=== PATIENT | female | born 1995 | race Caucasian/White ===

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

== ENCOUNTER 2017-07-11 21:33 | Emergency (ER) | payer MEDICAID ==
[2017-07-11] MEDS ORDERED: NORMAL SALINE 1000 ML 1,000 ML IV ONE (22:43)
--- NOTE | 2017-07-11 23:06 | ER Document Report ---
ED Cardiac - General Chief Complaint: Palpitations Stated Complaint: fast heart rate Time Seen by Provider: 07/11/17 22:45 Mode of Arrival: Ambulatory Information source: Patient, Parent TRAVEL OUTSIDE OF THE [place] IN LAST 30 DAYS: No - HPI Patient complains to provider of: Palpitations Notes: 22-year-old female with history of hypertension presents with 2 possibly 3 days of rapid palpitations that she has noted. It has been constant, regular. She has had some intermittent mild left chest discomfort and intermittent left arm tingling associated with this. She did have an episode of nausea without vomiting. She had a mild stuffy nose but no febrile illness recently. Currently no chest pain. Denies any new medications, this includes over-the- counter medications. No syncope. No calf pain or leg swelling. Denies prior cardiac or lung problems other than the hypertension. - Related Data Allergies/Adverse Reactions: No Known Allergies Allergy (Verified 10/12/16 18:42) Past Medical History - Social History Smoking Status: Never Smoker Drug Abuse: None Family History: Reviewed & Not Pertinent Patient has suicidal ideation: No Patient has homicidal ideation: No Renal/ Medical History: Denies: Hx Peritoneal Dialysis - Immunizations Immunizations up to date: Yes Hx Diphtheria, Pertussis, Tetanus Vaccination: Yes Review of Systems - Review of Systems -: Yes ROS unobtainable due to patient's medical condition Physical Exam - Vital signs Vitals: Temp Pulse Resp BP Pulse Ox 98.9 F 140 H 16 144/86 H 100 07/11/17 21:36 07/11/17 21:36 07/11/17 21:36 07/11/17 21:36 07/11/17 21:36 - Notes Notes: Physical Exam: GENERAL: VS as per nursing doc. Well-appearing, well-nourished and in no acute distress. HEAD: Atraumatic, normocephalic. EYES: Pupils equal round and reactive to light, extraocular movements intact, sclera anicteric, no conjunctival injection or discharge. ENT: Nares patent, oropharynx clear without exudates. Moist mucous membranes. NECK: Normal range of motion, supple without lymphadenopathy. No JVD. No Carotid Bruits. No thyromegaly noted LUNGS: Breath sounds clear to auscultation bilaterally and equal. No wheezes rales or rhonchi. HEART: Normal S1S2. Regular rhythm though the patient is tachycardic, without murmurs. Equal peripheral pulses. Heart rate during exam is 116. ABDOMEN: Soft, non-tender EXTREMITIES: Normal range of motion. No calf tenderness. Negative Homans. No edema. NEUROLOGICAL: Cranial nerves grossly intact. Normal speech. Normal sensory and motor exams. No gross cerebellar abnormalities. PSYCH: Normal mood, normal affect. Slightly anxious noted. SKIN: Warm, dry, no cyanosis, no splinter hemorrhages. Cap refill < 2 sec. Course - Re-evaluation Re-evalutation: 07/12/17 00:18 Patient improving. Heart rate 115, down from 140 initial evaluation. Troponin and thyroid studies pending. Discussed findings up to this point. They are concerned that she has had a lot of stress with the recent of her mother' s [id number]. 07/12/17 01:59 Reviewed all findings with the patient. Discussed slightly elevated WBC and warning signs to watch for. On reexam no discomfort. Heart rate 104. Mandatory follow-up and warning signs discussed with the patient and she verbally voices understanding. - Vital Signs Vital signs: Temp Pulse Resp BP Pulse Ox 98.9 F 140 H 20 137/71 H 98 07/11/17 21:36 07/11/17 21:36 07/12/17 01:07 07/12/17 01:07 07/12/17 01:07 - Laboratory Result Diagrams: 07/11/17 23:15 07/11/17 23:15 Laboratory results interpreted by me: 07/11/17 07/11/17 23:15 23:15 WBC 14.1 H Absolute Neutrophils 9.2 H Direct Bilirubin 0.5 H Total Protein 8.7 H - Diagnostic Test Radiology reviewed: Image reviewed, Reports reviewed - No acute process - EKG Interpretation by Me Rate: Tachycardia Additional EKG results interpreted by me: 07/11/17 23:05 Sinus tachycardia, rate 134. Mild nonspecific ST-T abnormalities probably more rate related. No clear ischemia. QRS of normal duration. Discharge - Discharge Clinical Impression: Tachycardia, Chest pain Condition: Good Disposition: HOME, SELF-CARE Instructions: Palpitations (Irregular or Rapid Heartrate) ([facility]) Additional Instructions: Please return for worsening or other concern. Please contact your physician for a follow-up this week. Referrals: MARIANO CONNORS, [employer] INSTRUCTOR-C [Primary Care Provider] - Follow up in 3-5 days
--- NOTE | 2017-07-11 23:19 | RADIOLOGY REPORT (SQ) ---
EXAM DESCRIPTION: CHEST SINGLE VIEW COMPLETED DATE/TIME: 07/11/2017 10:56 pm REASON FOR STUDY: palpitations COMPARISON: None. EXAM PARAMETERS: NUMBER OF VIEWS: One view. TECHNIQUE: Single frontal radiographic view of the chest acquired. RADIATION DOSE: NA LIMITATIONS: None. FINDINGS: LUNGS AND PLEURA: No opacities, masses or pneumothorax. No pleural effusion. MEDIASTINUM AND HILAR STRUCTURES: No masses. Contour normal. HEART AND VASCULAR STRUCTURES: Heart normal in size. Normal vasculature. BONES: No acute findings. HARDWARE: None in the chest. OTHER: No other significant finding. IMPRESSION: NO ACUTE RADIOGRAPHIC FINDING IN THE CHEST. TECHNICAL DOCUMENTATION: JOB ID: [id number] [employer]- All Rights Reserved
[2017-07-11 23:43] LABS: ABSOLUTE BASOPHILS # (AUTO) 0.1 10^3/uL (0.0-0.2); ABSOLUTE EOSINOPHILS # (AUTO) 0.1 10^3/uL (0.0-0.6); ABSOLUTE LYMPHOCYTES (AUTO) 3.6 10^3/uL (0.5-4.7); ABSOLUTE MONOCYTES (AUTO) 1.1 10^3/uL (0.1-1.4); ABSOLUTE NEUT (AUTO) 9.2 10^3/uL (1.7-8.2); BASOPHILS % (AUTO) 0.5 % (0-2); EOSINOPHILS % (AUTO) 0.7 % (0-6); HEMATOCRIT 42.5 % (36.0-47.0); HEMOGLOBIN 14.6 g/dL (12.0-15.5); HGB HCT DIFFERENCE 1.3; LYMPHOCYTES % (AUTO) 25.2 % (13-45); MEAN CORPUSCULAR HEMOGLOBIN 28.2 pg (27.0-33.4); MEAN CORPUSCULAR HGB CONC 34.4 g/dL (32.0-36.0); MEAN CORPUSCULAR VOLUME 82 fl (80-97); MONOCYTES % (AUTO) 8.1 % (3-13); RED BLOOD COUNT 5.18 10^6/uL (3.72-5.28); RED CELL DISTRIBUTION WIDTH 13.7 % (11.5-14.0); SEGMENTED NEUTROPHILS % (AUTO) 65.5 % (42-78); WHITE BLOOD COUNT 14.1 10^3/uL (4.0-10.5)
[2017-07-11 23:46] LABS: APPEARANCE,URINE SLIGHTLY-CLOUDY; BILIRUBIN,URINE NEGATIVE (NEGATIVE); GLUCOSE, URINE NEGATIVE (NEGATIVE); KETONES,URINE NEGATIVE (NEGATIVE); LEUKOCYTE ESTERASE,URINE NEGATIVE (NEGATIVE); NITRITE,URINE NEGATIVE (NEGATIVE); PROTEIN,URINE NEGATIVE (NEGATIVE); URINE SPECIFIC GRAVITY 1.012; UROBILINOGEN,URINE NEGATIVE mg/dL (<2.0)
[2017-07-12 00:02] LABS: ALANINE AMINOTRANSFERASE 32 U/L (9-52); ALBUMIN 4.8 g/dL (3.5-5.0); ALKALINE PHOSPHATASE 107 U/L (38-126); ANION GAP 14 (5-19); ASPARTATE AMINO TRANSFERASE 21 U/L (14-36); BILIRUBIN,DIRECT 0.5 mg/dL (0.0-0.4); BILIRUBIN,TOTAL 0.5 mg/dL (0.2-1.3); BLOOD UREA NITROGEN 9 mg/dL (7-20); CARBON DIOXIDE 29 mmol/L (22-30); CHLORIDE 101 mmol/L (98-107); CREATINE KINASE 51 U/L (30-135); GLUCOSE 102 mg/dL (75-110); POTASSIUM 3.8 mmol/L (3.6-5.0); TOTAL PROTEIN 8.7 g/dL (6.3-8.2)
[2017-07-12 00:20] LABS: FREE T3 4.57 pg/mL (2.77-5.27)
[2017-07-12 00:33] LABS: THYROID STIMULATING HORMONE 2.48 uIU/mL (0.47-4.68)
[2017-07-12 00:47] LABS: URINE BARBITURATES SCREEN NEGATIVE; URINE METHADONE SCREEN NEGATIVE; URINE OPIATES LOW NEGATIVE; URINE PHENCYCLIDINE SCREEN NEGATIVE
[2017-07-12 02:05] VITALS: BP 117/55
--- NOTE | 2017-07-12 09:41 | EKG REPORT ---
SEVERITY:- OTHERWISE NORMAL ECG - SINUS TACHYCARDIA : Confirmed by: Yanci Vega 12-Jul-2017 09:41:00
== END 2017-07-12 02:08 | disposition home or self-care (01) ==
LOC: ER 21:33
DX: R00.0 Tachycardia, unspecified (principal); R07.9 Chest pain, unspecified; R00.2 Palpitations; I10 Essential (primary) hypertension
CPT/HCPCS: 93005; 99285; 96360; 36415; 84439; 82550; 84443; 84703; 85025; 80053; 81001; 84484; 80307; 84481; 85379; 71010; 93010; J7030

== ENCOUNTER 2017-09-05 01:07 | Emergency (ER) | payer MEDICAID ==
--- NOTE | 2017-09-05 02:28 | RADIOLOGY REPORT (SQ) ---
EXAM DESCRIPTION: CHEST SINGLE VIEW CLINICAL HISTORY: 22 years, Female, chest pain COMPARISON: None. FINDINGS: Normal lung volume, clear parenchyma, normal cardiac silhouette, and intact bony thorax. IMPRESSION: No acute cardiopulmonary findings. 2011 [employer]- All Rights Reserved
--- NOTE | 2017-09-05 02:30 | ER Document Report ---
ED General - General Chief Complaint: Chest Pain Stated Complaint: CHEST DISCOMFORT Time Seen by Provider: 09/05/17 01:37 Notes: Patient is a 22-year-old female with past medical history of morbid obesity and hypertension who presents with concerns of intermittent left-sided chest pain for the past 1 week. Describes it as an intermittent, stabbing pain that she notices mostly at night. Patient states when she is lying in bed she occasionally feels the pain she cannot stop thinking about it which is what eventually prompted her to come to the emergency department tonight. She denies any pain at time of assessment. She states that these pains come for several seconds and then spontaneously resolved. She denies any associated shortness of breath, nausea, vomiting, diaphoresis, or pleuritic pain. No history of DVT or pulmonary embolus. She does not use any form of control and does not use any form of supplemental estrogen. She has not seen her primary doctor regarding today's concerns. TRAVEL OUTSIDE OF THE [place] IN LAST 30 DAYS: No - Related Data Allergies/Adverse Reactions: No Known Allergies Allergy (Verified 10/12/16 18:42) Past Medical History - General Information source: Patient - Social History Smoking Status: Never Smoker Frequency of alcohol use: None Drug Abuse: None Lives with: Family Family History: Reviewed & Not Pertinent Patient has suicidal ideation: No Patient has homicidal ideation: No Renal/ Medical History: Denies: Hx Peritoneal Dialysis - Immunizations Immunizations up to date: Yes Hx Diphtheria, Pertussis, Tetanus Vaccination: Yes Review of Systems - Review of Systems Notes: Constitutional: Negative for fever. HENT: Negative for sore throat. Eyes: Negative for visual changes. Cardiovascular: Positive for chest pain. Respiratory: Negative for shortness of breath. Gastrointestinal: Negative for abdominal pain, vomiting or diarrhea. Genitourinary: Negative for dysuria. Musculoskeletal: Negative for back pain. Skin: Negative for rash. Neurological: Negative for headaches, weakness or numbness. 10 point ROS negative except as marked above and in HPI. Physical Exam - Vital signs Vitals: Temp Pulse Resp BP Pulse Ox 98.6 F 90 21 H 119/70 97 09/05/17 01:25 09/05/17 01:25 09/05/17 01:25 09/05/17 01:25 09/05/17 01:25 Interpretation: Normal Notes: PHYSICAL EXAMINATION: GENERAL: Well-appearing, well-nourished and in no acute distress. HEAD: Atraumatic, normocephalic. EYES: Pupils equal round and reactive to light, extraocular movements intact, sclera anicteric, conjunctiva are normal. ENT: nares patent, oropharynx clear without exudates. Moist mucous membranes. NECK: Normal range of motion, supple without lymphadenopathy LUNGS: Breath sounds clear to auscultation bilaterally and equal. No wheezes rales or rhonchi. HEART: Regular rate and rhythm without murmurs Chest wall: Reproduce pain with palpation of the left central chest just lateral to the sternum ABDOMEN: Soft, nontender, normoactive bowel sounds. No guarding, no rebound. No masses appreciated. EXTREMITIES: Normal range of motion, no pitting or edema. No cyanosis. NEUROLOGICAL: No focal neurological deficits. Moves all extremities spontaneously and on command. PSYCH: Normal mood, normal affect. SKIN: Warm, Dry, normal turgor, no rashes or lesions noted. Course - Re-evaluation Re-evalutation: 09/05/17 02:28 Presentation of chest pain in an otherwise well appearing patient. Low clinical suspicion for ACS given clinical history, exam, EKG without ST elevations or depressions. Given the extremely low concern for ACS I do not believe troponin testing is indicated. PE also seems unlikely given clinical history, absence of tachycardia or dyspnea. Patient is PERC criteria negative. CXR without evidence of pneumothorax or pneumonia. No widened mediastinum. Aortic dissection also seems unlikely given history, symmetric pulses, CXR, and vitals. Clinical history appears to be most consistent with musculoskeletal irritation likely secondary to patient having large breasts and not wearing a bra on a regular basis. Her pain is reproduced with palpation at the bedside. At this time will discharge with return precautions and follow-up recommendations. Verbal discharge instructions given a the bedside and opportunity for questions given. Medication warnings reviewed. Patient is in agreement with this plan and has verbalized understanding of return precautions and the need for primary care follow-up in the next 24-72 hours. - Vital Signs Vital signs: Temp Pulse Resp BP Pulse Ox 98.6 F 90 21 H 119/70 97 09/05/17 01:25 09/05/17 01:25 09/05/17 01:25 09/05/17 01:25 09/05/17 01:25 - Diagnostic Test Radiology reviewed: Image reviewed, Reports reviewed Radiology results interpreted by me: 09/05/17 02:28 Chest x-ray: No acute infiltrate or pneumothorax - EKG Interpretation by Me Additional EKG results interpreted by me: 09/05/17 02:29 Normal sinus rhythm. Rate 92. No ST elevations or depressions. QTC is 431. Discharge - Discharge Clinical Impression: Chest wall pain Condition: Good Disposition: HOME, SELF-CARE Additional Instructions: Your pain is likely related to irritation of your chest wall muscles. Please wear a supportive bra at all times to reduce the frequency of your pain. You may take ibuprofen or Tylenol per box instructions as needed for discomfort. Apply local lidocaine to the area per bottle instructions. There is a product sold [id number] called "Aspercreme with lidocaine" that you can use for this purpose. Please follow-up with her primary care doctor in the next 2-3 days. Return to the emergency department immediately if you develop shortness of breath, increased pain, begin coughing blood, pass out, or have any other symptoms that are worrisome to you. Referrals: ALBIN BABCOCK MD [Primary Care Provider] - Follow up as needed
[2017-09-05 02:47] VITALS: BP 122/68
--- NOTE | 2017-09-05 07:35 | EKG REPORT ---
SEVERITY:- NORMAL ECG - SINUS RHYTHM : Confirmed by: Wilmer Brown MD 05-Sep-2017 07:34:01
== END 2017-09-05 02:34 | disposition home or self-care (01) ==
LOC: ER 01:07
DX: R07.89 Other chest pain (principal); I10 Essential (primary) hypertension
CPT/HCPCS: 71045; 93005; 93010; 99285

== ENCOUNTER 2018-09-15 14:47 | Outpatient (CLI) | payer MEDICAID ==
--- NOTE | 2018-09-15 16:33 | Non Stress Test Report ---
Non Stress Test Datetime Report Generated by CPN: 09/15/2018 16:32 DEMOGRAPHIC EGA NST: 34.3 INDICATION Indication for Study: Ordered by Provider MONITORING Monitor Explained: Monitor Explained; Test Explained; Patient Verbalized Understanding Time on Monitor: 09/15/2018 15:16 Time off Monitor: 09/15/2018 16:24 NST Duration: 68 NST INTERVENTIONS NST Interventions: PO Hydration; Reposition Patient Physician Notified NST: Terrence Hadley, CNBasil BABY A: [id number] BABY A Movement : Present Contraction Frequency : none FHR Baseline : 135 Accelerations : 15X15 Decelerations : None Variability : Moderate 6-25bpm NST Review: Meets Criteria for Reactive NST NST Review and Verified By : KAMILA Hughes Results: Reactive NST REPORT Report Trigger: Send Report
== END 2018-09-15 16:30 | disposition home or self-care (01) ==
LOC: LC 14:47
PROVIDERS: ATTEND Obstetrics & Gynecology Gynecology
PROC: 4A1HXCZ Monitoring of Products of Conception, Cardiac Rate, External Approach (ICD-10-PCS; principal; 2018-09-15)
DX: Z34.83 Encounter for supervision of other normal pregnancy, third trimester (principal)
CPT/HCPCS: 59025

== ENCOUNTER 2018-09-19 11:05 | Outpatient (CLI) | payer MEDICAID ==
--- NOTE | 2018-09-19 14:01 | RADIOLOGY REPORT (SQ) ---
EXAM DESCRIPTION: U/S PROFILE W/O STRESS COMPLETED DATE/TIME: 09/19/2018 1:47 pm REASON FOR STUDY: non reactive NST at office, non reactive on L D, COMPARISON: None. TECHNIQUE: Limited verde-scale realtime and static images of the fetus to measure specified parameter s. LIMITATIONS: None. FINDINGS: HEART RATE: 158 beats per minute(again in of examination). heart rate of 160 beats per minute at the end of the exam. E EFRAIN: 8.1 cm. BREATHING MOVEMENT: 0 points. MOVEMENT: 2 points. POSTURE AND TONE: 0 points. QUALITATIVE EFRAIN: 2 points. OTHER: Vertex presentation. IMPRESSION: BIOPHYSICAL PROFILE: 12/04 Trimester of : Third - 28 weeks to delivery COMMENT: BREATHING MOVEMENTS: 2 POINTS: PRESENT 0 POINTS: ABSENT MOTION: 2 POINTS: PRESENT 0 POINTS: ABSENT TONE: 2 POINTS: PRESENT 0 POINTS: ABSENT AMNIOTIC FLUID VOLUME: 2 POINTS: LARGEST POCKET GREATER THAN 2 CM DEPTH. 0 POINTS: NO POCKET OF 2 CM. TECHNICAL DOCUMENTATION: JOB ID: [id number] [employer]- All Rights Reserved Reading location - IP/workstation name: [email or web address]
[2018-09-19 18:54] LABS: APPEARANCE,URINE CLEAR; BILIRUBIN,URINE NEGATIVE (NEGATIVE); COLOR,URINE STRAW; GLUCOSE, URINE NEGATIVE (NEGATIVE); KETONES,URINE NEGATIVE (NEGATIVE); LEUKOCYTE ESTERASE,URINE TRACE (NEGATIVE); NITRITE,URINE NEGATIVE (NEGATIVE); PROTEIN,URINE NEGATIVE (NEGATIVE); URINE SPECIFIC GRAVITY 1.008; UROBILINOGEN,URINE NEGATIVE mg/dL (<2.0)
[2018-09-19 19:08] LABS: URINE AMPHETAMINES SCREEN NEGATIVE; URINE BARBITURATES SCREEN NEGATIVE; URINE BENZODIAZEPINES SCREEN NEGATIVE; URINE COCAINE SCREEN NEGATIVE; URINE MARIJUANA (THC) SCREEN NEGATIVE; URINE METHADONE SCREEN NEGATIVE; URINE PHENCYCLIDINE SCREEN NEGATIVE
--- NOTE | 2018-09-19 19:16 | RADIOLOGY REPORT (SQ) ---
EXAM DESCRIPTION: U/S PROFILE W/O STRESS COMPLETED DATE/TIME: 09/19/2018 7:03 pm REASON FOR STUDY: bpp 12/04 @ 1330, repeat @ [address] Rodriguez COMPARISON: None. TECHNIQUE: Limited verde-scale realtime and static images of the fetus to measure specified parameter s. LIMITATIONS: None. FINDINGS: HEART RATE: 150 beats per minute. EFRAIN: 9.7 cm. BREATHING MOVEMENT: 2 points. MOVEMENT: 2 points. POSTURE AND TONE: 2 points. QUALITATIVE EFRAIN: 2 points. OTHER: Vertex presentation. IMPRESSION: BIOPHYSICAL PROFILE: 04/05. Trimester of : Third - 28 weeks to delivery COMMENT: BREATHING MOVEMENTS: 2 POINTS: PRESENT 0 POINTS: ABSENT MOTION: 2 POINTS: PRESENT 0 POINTS: ABSENT TONE: 2 POINTS: PRESENT 0 POINTS: ABSENT AMNIOTIC FLUID VOLUME: 2 POINTS: LARGEST POCKET GREATER THAN 2 CM DEPTH. 0 POINTS: NO POCKET OF 2 CM. TECHNICAL DOCUMENTATION: JOB ID: [id number] [employer]- All Rights Reserved Reading location - IP/workstation name: [email or web address]
== END 2018-09-19 19:22 | disposition home or self-care (01) ==
LOC: LC 11:05
PROVIDERS: ATTEND Obstetrics & Gynecology Gynecology
PROC: 4A1HXCZ Monitoring of Products of Conception, Cardiac Rate, External Approach (ICD-10-PCS; principal; 2018-09-19)
DX: O10.913 Unspecified pre-existing hypertension complicating pregnancy, third trimester (principal); Z3A.35 35 weeks gestation of pregnancy
CPT/HCPCS: 76819; 80307; 81001

== ENCOUNTER 2018-09-22 10:16 | Outpatient (CLI) | payer MEDICAID ==
--- NOTE | 2018-09-22 11:19 | Non Stress Test Report ---
Non Stress Test Datetime Report Generated by CPN: 09/22/2018 11:18 DEMOGRAPHIC EGA NST: 35.3 EGA NST: 35.0 INDICATION Indication for Study: Ordered by Provider Indication for Study: Chronic Hypertension; Ordered by Provider Indication for Study (NST) Other: sent from the office VITAL SIGNS Temperature - NST: 98.6 Temperature - NST: 98.1 Pulse - NST: 118 RESP - NST: 18 RESP - NST: 18 NBPSYS NST: 131 NBPDIA NST: 63 MONITORING Monitor Explained: Monitor Explained; Test Explained; Patient Verbalized Understanding Monitor Explained: Monitor Explained; Test Explained; Patient Verbalized Understanding Time on Monitor: 09/22/2018 10:45 Time on Monitor: 09/19/2018 13:53 Time off Monitor: 09/22/2018 11:17 NST Duration: 32 NST INTERVENTIONS NST Interventions: None NST Interventions: PO Hydration; Reposition Patient Physician Notified NST: Dr Guzmán Physician Notified NST: Mi CHAIREZ CNM BABY A: [id number] BABY A Movement : Present Contraction Frequency : 0 FHR Baseline : 130 Accelerations : 15X15 Decelerations : None Variability : Moderate 6-25bpm NST Review: Meets Criteria for Reactive NST NST Review and Verified By : D Bellavance RN NST Results: Reactive NST REPORT Report Trigger: Send Report
== END 2018-09-22 11:25 | disposition home or self-care (01) ==
LOC: LC 10:16
PROVIDERS: ATTEND Obstetrics & Gynecology
PROC: 4A1HXCZ Monitoring of Products of Conception, Cardiac Rate, External Approach (ICD-10-PCS; principal; 2018-09-22)
DX: O10.913 Unspecified pre-existing hypertension complicating pregnancy, third trimester (principal); Z3A.35 35 weeks gestation of pregnancy
CPT/HCPCS: 59025

== ENCOUNTER 2018-09-30 22:23 | Emergency (ER) | payer MEDICAID ==
[2018-09-30] MEDS ORDERED: CLINDAMYCIN HCL 150 MG CAPSULE PO ONE (23:36)
--- NOTE | 2018-09-30 23:39 | ER Document Report ---
ED General - General Chief Complaint: Skin Sore(s) Stated Complaint: TAILBONE PAIN Time Seen by Provider: 09/30/18 23:35 Notes: Patient is a pleasant 23-year-old female who presents with complaint of a swollen area over the superior aspect of her intergluteal cleft. Patient denies any previous history of pilonidal cysts or abscesses. She says that today it ruptured and is start draining and therefore she came to the ER. No other complaints at this time. Is not a diabetic. She is 8 weeks . TRAVEL OUTSIDE OF THE [place] IN LAST 30 DAYS: No - Related Data Allergies/Adverse Reactions: No Known Allergies Allergy (Verified 09/30/18 23:38) Past Medical History - Social History Smoking Status: Never Smoker Frequency of alcohol use: None Drug Abuse: None Family History: Reviewed & Not Pertinent Renal/ Medical History: Denies: Hx Peritoneal Dialysis - Immunizations Immunizations up to date: Yes Hx Diphtheria, Pertussis, Tetanus Vaccination: Yes Review of Systems - Review of Systems Notes: My Normal Review Basic REVIEW OF SYSTEMS: CONSTITUTIONAL : Denies fever, chills, or sweats. Denies recent illness. GASTROINTESTINAL: Denies abdominal pain. Denies nausea, vomiting, or diarrhea. Denies constipation. Last BM: FEMALE GENITOURINARY: Denies vaginal bleeding, abnormal or irregular periods. LMP: Currently MUSCULOSKELETAL: Swollen area at superior intergluteal cleft. SKIN: Denies rash or skin lesions. ALL OTHER SYSTEMS REVIEWED AND NEGATIVE. Physical Exam - Vital signs Vitals: Temp Pulse Resp BP Pulse Ox 99.9 F 103 H 18 155/89 H 97 09/30/18 22:40 09/30/18 22:40 09/30/18 22:40 09/30/18 22:40 09/30/18 22:40 - Notes Notes: General Appearance: Well nourished, alert, cooperative, no acute distress, no obvious discomfort. Vitals: reviewed, See vital signs table. Extremities: At this superior intergluteal cleft patient has what appears to be a panel abscess which has since ruptured and drained. I do not see any further fluctuance in the area. There is just a very small amount of blood tinged drainage coming from the area. No spreading erythema. Erythema is all just localized to the area of where the previous abscess was. Skin: warm, dry, appropriate color, no rash Neuro: speech clear, oriented x 3, normal affect, responds appropriately to questions. Course - Re-evaluation Re-evalutation: 10/01/18 06:10 No need for incision and drainage as abscesses. Already ruptured on his own and there is no further fluctuance or induration on exam. Will place patient antibiotic. I encouraged her return to ER if she has fevers, spreading redness, increasing swelling, or worsening pain. Patient agrees with plan and will be discharged home. She is to follow-up with her doctor for reevaluation. Dictation of this chart was performed using voice recognition software; therefore, there may be some unintended grammatical errors. - Vital Signs Vital signs: Temp Pulse Resp BP Pulse Ox 98.8 F 91 18 137/73 H 99 09/30/18 23:56 09/30/18 23:56 09/30/18 23:56 09/30/18 23:56 09/30/18 23:56 Discharge - Discharge Clinical Impression: Pilonidal abscess Condition: Good Disposition: HOME, SELF-CARE Additional Instructions: You have what is called a pilonidal cyst. Sometimes these become infected. They will sometimes rupture and drain as yours already has. There is noresidual palpable abscess at this time. You will probably continue to have some bloody drainage. Therefore you should keep some gauze in the area. Anytime you have a bowel movement you should go straight to the shower and thoroughly clean with soap and water. We will place you on antibiotics to help take care of any residual infection. Please have a low threshold to return to the ER if you develop recurrent swelling, fevers, increasing pain in the area, or if you feel you are worsening in any way. Please follow-up with your doctor in 3-4 days for reevaluation. Prescriptions: RX: Clindamycin HCl [Cleocin 150 mg Capsule] 300 mg PO Q6 #56 capsule
[2018-09-30 23:57] VITALS: BP 137/73
== END 2018-09-30 23:56 | disposition home or self-care (01) ==
LOC: ER 22:23
DX: O99.711 Diseases of the skin and subcutaneous tissue complicating pregnancy, first trimester (principal); L05.01 Pilonidal cyst with abscess; Z3A.08 8 weeks gestation of pregnancy
CPT/HCPCS: 99282; J3490

== ENCOUNTER 2020-09-22 14:36 | Emergency (ER) | payer OTHER, MEDICAID ==
--- NOTE | 2020-09-22 15:36 | ER Document Report ---
ED Medical Screen (RME) - General Chief Complaint: High Blood Pressure Stated Complaint: HIGH BLOOD PRESSURE Time Seen by Provider: 09/22/20 15:26 TRAVEL OUTSIDE OF THE [place] IN LAST 30 DAYS: No - HPI Notes: Patient is a 25-year-old female who is currently 32 weeks and was sent by her OB for high blood pressure. Patient states her systolic blood pressure was 147. She also reports chest tightness and palpitations. She denies shortness of breath, abdominal pain, vomiting, and fever. This is the patient's second , she states she had high blood pressure during her first but was not diagnosed with preeclampsia. - Related Data Allergies/Adverse Reactions: No Known Allergies Allergy (Verified 09/30/18 23:38) Past Medical History - Social History Chew tobacco use (# tins/day): No Frequency of alcohol use: None Drug Abuse: None - Past Medical History Cardiac Medical History: Reports: Hx Hypertension Renal/ Medical History: Denies: Hx Peritoneal Dialysis - Immunizations Immunizations up to date: Yes Hx Diphtheria, Pertussis, Tetanus Vaccination: Yes Physical Exam - Vital signs Vitals: Temp Pulse Resp BP Pulse Ox 98.5 F 112 H 20 151/84 H 97 09/22/20 14:47 09/22/20 14:47 09/22/20 14:47 09/22/20 14:47 09/22/20 14:47 - Cardiovascular Rhythm: Tachycardia Heart sounds: Normal auscultation Course - Re-evaluation Re-evalutation: I have greeted and performed a rapid initial assessment of this patient. A comprehensive ED assessment and evaluation of the patient, analysis of test results and completion of medical decision making process will be conducted by an additional ED providers. - Vital Signs Vital signs: Temp Pulse Resp BP Pulse Ox 98.5 F 112 H 20 151/84 H 97 09/22/20 14:47 09/22/20 14:47 09/22/20 14:47 09/22/20 14:47 09/22/20 14:47
--- NOTE | 2020-09-22 16:00 | RADIOLOGY REPORT (SQ) ---
EXAM DESCRIPTION: CHEST SINGLE VIEW IMAGES COMPLETED DATE/TIME: 09/22/2020 3:51 pm REASON FOR STUDY: chest pain COMPARISON: PA view of the chest from 09/05/2017. EXAM PARAMETERS: NUMBER OF VIEWS: One view. TECHNIQUE: A PA view of the chest was obtained. RADIATION DOSE: NA LIMITATIONS: None. FINDINGS: LUNGS AND PLEURA: No consolidation, pleural effusion or pneumothorax. MEDIASTINUM AND HILAR STRUCTURES: No mediastinal or hilar contour abnormality. HEART AND VASCULAR STRUCTURES: The cardiac silhouette and pulmonary vasculature are within normal robertson its. BONES: No acute findings. HARDWARE: None in the chest. OTHER: No other finding. IMPRESSION: No acute cardiopulmonary process. TECHNICAL DOCUMENTATION: JOB ID: [id number] 2010 [employer]- All Rights Reserved Reading location - IP/workstation name: [email or web address]
[2020-09-22 16:05] LABS: ABSOLUTE BASOPHILS # (AUTO) 0.1 10^3/uL (0.0-0.2); ABSOLUTE EOSINOPHILS # (AUTO) 0.2 10^3/uL (0.0-0.6); ABSOLUTE LYMPHOCYTES (AUTO) 3.4 10^3/uL (0.5-4.7); ABSOLUTE NEUT (AUTO) 10.1 10^3/uL (1.7-8.2); BASOPHILS % (AUTO) 0.4 % (0-2); EOSINOPHILS % (AUTO) 1.6 % (0-6); HEMATOCRIT 34.7 % (36.0-47.0); HEMOGLOBIN 11.6 g/dL (12.0-15.5); LYMPHOCYTES % (AUTO) 22.9 % (13-45); MEAN CORPUSCULAR HEMOGLOBIN 26.1 pg (27.0-33.4); MEAN CORPUSCULAR HGB CONC 33.4 g/dL (32.0-36.0); MEAN CORPUSCULAR VOLUME 78 fl (80-97); MONOCYTES % (AUTO) 6.8 % (3-13); PLATELET COUNT 302 10^3/uL (150-450); RED BLOOD COUNT 4.44 10^6/uL (3.72-5.28); RED CELL DISTRIBUTION WIDTH 14.1 % (11.5-14.0); SEGMENTED NEUTROPHILS % (AUTO) 68.3 % (42-78); TOTAL CELLS COUNTED % (AUTO) 100 %; WHITE BLOOD COUNT 14.8 10^3/uL (4.0-10.5)
[2020-09-22 16:30] LABS: ALBUMIN 3.5 g/dL (3.5-5.0); ALKALINE PHOSPHATASE 145 U/L (38-126); ANION GAP 9 (5-19); ASPARTATE AMINO TRANSFERASE 14 U/L (14-36); BILIRUBIN,DIRECT 0.2 mg/dL (0.0-0.4); BILIRUBIN,TOTAL 0.5 mg/dL (0.2-1.3); BLOOD UREA NITROGEN 5 mg/dL (7-20); CALCIUM 9.7 mg/dL (8.4-10.2); CARBON DIOXIDE 23 mmol/L (22-30); CHLORIDE 104 mmol/L (98-107); GLUCOSE 79 mg/dL (75-110); POTASSIUM 4.3 mmol/L (3.6-5.0); TOTAL PROTEIN 6.8 g/dL (6.3-8.2)
--- NOTE | 2020-09-22 16:54 | EKG REPORT ---
SEVERITY:- NORMAL ECG - SINUS RHYTHM : Confirmed by: Bib Cali MD 22-Sep-2020 16:54:03
[2020-09-22 17:20] LABS: URIC ACID 4.5 mg/dL (2.5-6.2)
--- NOTE | 2020-09-22 18:14 | ER Document Report ---
Entered by MADHU GRIJALVA SCRIBE 09/22/20 1722 Acting as scribe for:[facility], ED General - General Chief Complaint: High Blood Pressure Stated Complaint: HIGH BLOOD PRESSURE Time Seen by Provider: 09/22/20 15:26 Primary Care Provider: KAREN FORDE MD [ACTIVE STAFF] - 09/23/20 ANDRE BABCOCK PA-C [Primary Care Provider] - Follow up as needed Mode of Arrival: Ambulatory Information source: Patient Notes: This 25-year-old female patient that is 32 weeks with a due date of November 15 presents today from [facility] office for concerns of elevated blood pressures. Patient is on labetalol 200 twice daily and has been for quite some time as this is a chronic issue for her. Consulted with Dr. Forde who wants her to call the office tomorrow for follow-up appointment and a 24-hour urine. States this is a chronic issue and they will adjust her blood pressure medicine tomorrow. She denies any fevers, chills, COVID-19 concerns. TRAVEL OUTSIDE OF THE [place] IN LAST 30 DAYS: No - Related Data Allergies/Adverse Reactions: No Known Allergies Allergy (Verified 09/30/18 23:38) Past Medical History - General Information source: Patient - Social History Smoking Status: Never Smoker Cigarette use (# per day): No Chew tobacco use (# tins/day): No Frequency of alcohol use: None Drug Abuse: None Lives with: Family Family History: Reviewed & Not Pertinent - Past Medical History Cardiac Medical History: Reports: Hx Hypertension Surgical Hx: Negative - Immunizations Immunizations up to date: Yes Hx Diphtheria, Pertussis, Tetanus Vaccination: Yes Review of Systems - Review of Systems Constitutional: No symptoms reported EENT: No symptoms reported Cardiovascular: See HPI Respiratory: No symptoms reported Gastrointestinal: No symptoms reported Genitourinary: No symptoms reported Female Genitourinary: See HPI, Musculoskeletal: No symptoms reported Skin: No symptoms reported Hematologic/Lymphatic: No symptoms reported Neurological/Psychological: No symptoms reported -: Yes All other systems reviewed and negative Physical Exam - Vital signs Vitals: Temp Pulse Resp BP Pulse Ox 98.5 F 112 H 20 151/84 H 97 09/22/20 14:47 09/22/20 14:47 09/22/20 14:47 09/22/20 14:47 09/22/20 14:47 - Notes Notes: Physical Exam: General: Alert, appears well. HEENT: Normocephalic. Atraumatic. PERRL. Extraocular movements intact. Oropharynx clear. Neck: Supple. Non-tender. Respiratory: No respiratory distress. Clear and equal breath sounds bilaterally. Cardiovascular: Regular rate and rhythm. Abdominal: Morbidly obese. non-tender. No distension. Normal Bowel Sounds. Back: No gross abnormalities. Extremities: Moves all four extremities. Upper extremities: Normal inspection. Normal ROM. Lower extremities: Normal inspection. No edema. Normal ROM. Neurological: Normal cognition. AAOx4. Normal speech. Psychological: Normal affect. Normal Mood. Skin: Warm. Dry. Normal color. Course - Vital Signs Vital signs: Temp Pulse Resp BP Pulse Ox 98.5 F 112 H 17 172/91 H 97 09/22/20 20:01 09/22/20 14:47 09/22/20 20:01 09/22/20 20:01 09/22/20 20:01 - Laboratory Results Result Diagrams: 09/22/20 15:52 09/22/20 15:52 Laboratory Results Interpreted: 09/22/20 09/22/20 09/22/20 15:52 15:52 17:57 WBC 14.8 H Hgb 11.6 L Hct 34.7 L MCV 78 L MCH 26.1 L RDW 14.1 H Absolute Neuts (auto) 10.1 H Sodium 136.0 L BUN 5 L Creatinine 0.51 L Alkaline Phosphatase 145 H Urine Ketones 20 H Urine Nitrite (Reflex) POSITIVE H Leukocyte Esterase Rfl LARGE H Critical Laboratory Results Reviewed: No Critical Results - Radiology Results Critical Radiology Results Reviewed: No Critical Results Discharge - Discharge Clinical Impression: Hypertension Qualifiers: Hypertension type: unspecified Qualified Code(s): I10 - Essential (primary) hypertension UTI (urinary tract infection) Qualifiers: Urinary tract infection type: site unspecified Hematuria presence: with hematuria Qualified Code(s): N39.0 - Urinary tract infection, site not specified Qualifiers: Weeks of gestation: 32 weeks Qualified Code(s): Z3A.32 - 32 weeks gestation of Condition: Stable Disposition: HOME, SELF-CARE Instructions: Cephalexin ([facility]), High Blood Pressure ([facility]), High Blood Pressure, Requiring Treatment ([facility]), Urinary Tract Infection ([facility]) Additional Instructions: See Dr. Forde in follow up. Call her tomorrow for follow up either tomorrow or Tuesday. Return here for fever, chest pain, persistent vomiting other problems or concerns. Prescriptions: Cephalexin Monohydrate [Keflex 500 mg Capsule] 500 mg PO TID #30 capsule Ondansetron [Zofran Odt 4 mg Tablet] 1 - 2 tab PO Q4H PRN #15 tab.rapdis PRN Reason: For Nausea/Vomiting Forms: Elevated Blood Pressure Referrals: ANDRE BABCOCK PA-C [Primary Care Provider] - Follow up as needed KAREN FORDE MD [ACTIVE STAFF] - 09/23/20 I personally performed the services described in the documentation, reviewed and edited the documentation which was dictated to the scribe in my presence, and it accurately records my words and actions.
[2020-09-22 18:29] LABS: APPEARANCE,URINE SLIGHTLY-CLOUDY; BILIRUBIN,URINE NEGATIVE (NEGATIVE); COLOR,URINE YELLOW; GLUCOSE, URINE NEGATIVE (NEGATIVE); KETONES,URINE 20 mg/dL (NEGATIVE); PROTEIN,URINE NEGATIVE (NEGATIVE); URINE SPECIFIC GRAVITY 1.015; UROBILINOGEN,URINE NEGATIVE mg/dL (<2.0)
[2020-09-22 18:55] LABS: UR PRO/CREAT RATIO RESULT 0.1 mg/mg (0.0-0.2); URINE CREATININE 138.9 mg/dL (16-327); URINE PROTEIN 10.2 mg/dL (<12)
[2020-09-22] MEDS ORDERED: CEPHALEXIN 500 MG CAPSULE PO ONE (19:59)
[2020-09-22 20:59] VITALS: BP 172/91
== END 2020-09-22 20:58 | disposition home or self-care (01) ==
LOC: ER 14:36
DX: O26.893 Other specified pregnancy related conditions, third trimester (principal); I10 Essential (primary) hypertension; O23.43 Unspecified infection of urinary tract in pregnancy, third trimester; R07.9 Chest pain, unspecified; R00.2 Palpitations; Z3A.32 32 weeks gestation of pregnancy
CPT/HCPCS: 36415; 71045; 80053; 81001; 82570; 83615; 84156; 84443; 84484; 84550; 85025; 93005; 93010; 99285